=== PATIENT | male | born 1935 | race Caucasian/White ===

== ENCOUNTER 2016-07-26 16:18 | Inpatient (IN) | payer MEDICARE ==
[2016-07-26] MEDS ORDERED: IPRATROPIUM-ALBUTEROL 3 ML NEB INHALATION STA ×2 (16:47→18:47)
[2016-07-26] MEDS ORDERED: SODIUM CHLORIDE 0.9% 1,000 ML IV STA (16:47)
[2016-07-26] MEDS ORDERED: MAGNESIUM SULFATE-D5W PMX 1 GM in DEXTROSE/WATER 1 100ML.BAG IVPB STA (16:47)
[2016-07-26] MEDS ORDERED: methylPREDNISolone SOD SUCCI 125 MG/2 ML VIAL IV STA (16:47)
[2016-07-26 17:07] LABS: Basophils # (A) 0.1 k/uL (0-0.2); Basophils % (A) 1 %; CH 33.1; CHCM 34.6; Eosinophils # (A) 0.1 k/uL (0-0.7); Eosinophils % (A) 1 %; HCT 43.6 % (39.0-53.0); HDW 2.33; HGB 14.6 gm/dL (13.0-17.5); Luc # (Auto) 0.37; Luc % (Auto) 4; Lymphocytes # (A) 1.4 k/uL (1.0-4.8); Lymphocytes % (A) 15 %; MCHC 33.4 g/dL (31.0-37.0); Mean Platelet Volume 6.5; Monocytes # (A) 0.8 k/uL (0-1.0); Monocytes % (A) 8 %; Neutrophils % (A) 72 %; RBC 4.55 m/uL (4.30-5.90); RDW 13.5 % (11.5-15.5); WBC 9.7 k/uL (3.8-10.6)
[2016-07-26 17:14] LABS: ALT 22 U/L (21-72); AST 25 U/L (17-59); Alkaline Phosphatase 44 U/L (38-126); Anion Gap 10 mmol/L; Blood Urea Nitrogen 32 mg/dL (9-20); Calcium 9.1 mg/dL (8.4-10.2); Carbon Dioxide 24 mmol/L (22-30); Chloride 103 mmol/L (98-107); Glucose 92 mg/dL (74-99); Magnesium 2.1 mg/dL (1.6-2.3); Non-African American GFR(MDRD) >60 (>60 ml/min/1.73 sqM); Partial Thromboplastin Time 26.1 sec (22.0-30.0); Potassium 4.7 mmol/L (3.5-5.1); Prothrombin Time 10.4 sec (9.0-12.0); Sodium 137 mmol/L (137-145); Total Bilirubin 0.8 mg/dL (0.2-1.3); Total Protein 7.1 g/dL (6.3-8.2)
--- NOTE | 2016-07-26 17:14 | ED ---
SOB HPI - General Chief Complaint: Shortness of Breath Stated Complaint: Difficulty Breathing Time Seen by Provider: 07/26/16 16:32 Source: patient, family, RN notes reviewed Mode of arrival: wheelchair Limitations: no limitations - History of Present Illness Initial Comments: Physical 81-year-old male with a history of pulmonary fibrosis who was comes in complaining of shortness of breath with exertional dyspnea today is found have a low pulse oximetry on his 3 L of oxygen in the 80% range issues as well as to the 90s he states he also had some headache some phlegm no chest pain no other symptoms at this time. MD Complaint: shortness of breath, cough - Related Data Home Medications Medication Instructions Recorded Confirmed ALPRAZolam [Xanax] 0.25 mg PO DAILY PRN 07/26/16 07/26/16 Aspirin EC [Ecotrin Low Dose] 81 mg PO DAILY 07/26/16 07/26/16 Candesartan/Hydrochlorothiazid 1 tab PO DAILY 07/26/16 07/26/16 [Candesartan-Hctz 32-12.5 mg Tb] Famotidine [Pepcid] 20 mg PO DAILY 07/26/16 07/26/16 Gabapentin [Neurontin] 300 mg PO DAILY 07/26/16 07/26/16 Pirfenidone [Esbriet] 267 mg PO DAILY 07/26/16 07/26/16 Sertraline [Zoloft] 100 mg PO DAILY 07/26/16 07/26/16 Simvastatin [Zocor] 40 mg PO HS 07/26/16 07/26/16 predniSONE 10 mg PO DAILY 07/26/16 07/26/16 rOPINIRole HCL [Requip] 1 mg PO HS 07/26/16 07/26/16 Allergies Allergy/AdvReac Type Severity Reaction Status Date / Time No Known Allergies Allergy Verified 07/26/16 16:54 Review of Systems ROS Statement: Those systems with pertinent positive or pertinent negative responses have been documented in the HPI. ROS Other: All systems not noted in ROS Statement are negative. Past Medical History Past Medical History: Hyperlipidemia, Hypertension Additional Past Medical History / Comment(s): pulmonary fibrosis, RLS History of Any Multi-Drug Resistant Organisms: None Reported Past Psychological History: No Psychological Hx Reported Smoking Status: Never smoker Past Alcohol Use History: None Reported Past Drug Use History: None Reported General Exam - General Exam Comments Initial Comments: This is a well-developed well-nourished awake alert oriented x 3 male Limitations: no limitations General appearance: alert, anxious, in distress Head exam: Present: atraumatic, normocephalic, normal inspection Eye exam: Present: normal appearance, PERRL, EOMI. Absent: scleral icterus, conjunctival injection, periorbital swelling ENT exam: Present: normal exam, mucous membranes moist Neck exam: Present: normal inspection. Absent: tenderness, meningismus, lymphadenopathy Respiratory exam: Present: wheezes, accessory muscle use, decreased breath sounds Cardiovascular Exam: Present: tachycardia GI/Abdominal exam: Present: soft, normal bowel sounds. Absent: distended, tenderness, guarding, rebound, rigid Extremities exam: Present: normal inspection, full ROM, normal capillary refill. Absent: tenderness, pedal edema, joint swelling, calf tenderness Back exam: Present: normal inspection Neurological exam: Present: alert, oriented X3, CN II-XII intact Psychiatric exam: Present: normal affect, normal mood Skin exam: Present: warm, dry, intact, normal color. Absent: rash Course Vital Signs 07/26/16 07/26/16 07/26/16 16:33 16:57 17:03 Temperature 99.0 F Pulse Rate 109 H 111 H Respiratory 20 18 18 Rate Blood Pressure 131/61 O2 Sat by Pulse 88 L Oximetry 07/26/16 07/26/16 07/26/16 17:15 17:18 18:16 Temperature 98.1 F Pulse Rate 108 H 103 H 102 H Respiratory 20 18 Rate Blood Pressure 125/62 130/72 O2 Sat by Pulse 95 92 L Oximetry 07/26/16 07/26/16 19:02 19:07 Temperature Pulse Rate 104 H 128 H Respiratory Rate Blood Pressure O2 Sat by Pulse Oximetry - Reevaluation(s) Reevaluation #1: 07/26/16 19:17 The patient had minimal improvement from the treatment that was rendered Medical Decision Making - Medical Decision Making I did reevaluate patient several more occasions he can minimal improvement she still desaturated with minimal exertion he will be admitted I did discuss case with him and his family and with Dr. Cook. Dr. Guzmán will be consulted - Lab Data Result diagrams: 07/26/16 16:55 07/26/16 16:55 Lab Results 03/12/0507/26/16 07/26/16 Range/Units 16:55 16:55 16:55 WBC 9.7 (3.8-10.6) k/uL RBC 4.55 (4.30-5.90) m/uL Hgb 14.6 (13.0-17.5) gm/dL Hct 43.6 (39.0-53.0) % MCV 96.0 (80.0-100.0) fL MCH 32.0 (25.0-35.0) pg MCHC 33.4 (31.0-37.0) g/dL RDW 13.5 (11.5-15.5) % Plt Count 163 (150-450) k/uL Neutrophils % 72 % Lymphocytes % 15 % Monocytes % 8 % Eosinophils % 1 % Basophils % 1 % Neutrophils # 7.0 (1.3-7.7) k/uL Lymphocytes # 1.4 (1.0-4.8) k/uL Monocytes # 0.8 (0-1.0) k/uL Eosinophils # 0.1 (0-0.7) k/uL Basophils # 0.1 (0-0.2) k/uL PT (9.0-12.0) sec INR (<1.1) APTT (22.0-30.0) sec Sodium 137 (137-145) mmol/L Potassium 4.7 (3.5-5.1) mmol/L Chloride 103 (98-107) mmol/L Carbon Dioxide 24 (22-30) mmol/L Anion Gap 10 mmol/L BUN 32 H (9-20) mg/dL Creatinine 1.05 (0.66-1.25) mg/dL Est GFR (MDRD) Af Amer >60 (>60 ml/min/1.73 sqM) Est GFR (MDRD) Non-Af >60 (>60 ml/min/1.73 sqM) Glucose 92 (74-99) mg/dL Calcium 9.1 (8.4-10.2) mg/dL Magnesium 2.1 (1.6-2.3) mg/dL Total Bilirubin 0.8 (0.2-1.3) mg/dL AST 25 (17-59) U/L ALT 22 (21-72) U/L Alkaline Phosphatase 44 (38-126) U/L Total Creatine Kinase 61 (55-170) U/L CK-MB (CK-2) 0.3 (0.0-2.4) ng/mL CK-MB (CK-2) Rel Index 0.5 Troponin I <0.012 (0.000-0.034) ng/mL NT-Pro-B Natriuret Pep pg/mL Total Protein 7.1 (6.3-8.2) g/dL Albumin 4.3 (3.5-5.0) g/dL 07/26/16 07/26/16 Range/Units 16:55 16:55 WBC (3.8-10.6) k/uL RBC (4.30-5.90) m/uL Hgb (13.0-17.5) gm/dL Hct (39.0-53.0) % MCV (80.0-100.0) fL MCH (25.0-35.0) pg MCHC (31.0-37.0) g/dL RDW (11.5-15.5) % Plt Count (150-450) k/uL Neutrophils % % Lymphocytes % % Monocytes % % Eosinophils % % Basophils % % Neutrophils # (1.3-7.7) k/uL Lymphocytes # (1.0-4.8) k/uL Monocytes # (0-1.0) k/uL Eosinophils # (0-0.7) k/uL Basophils # (0-0.2) k/uL PT 10.4 (9.0-12.0) sec INR 1.0 (<1.1) APTT 26.1 (22.0-30.0) sec Sodium (137-145) mmol/L Potassium (3.5-5.1) mmol/L Chloride (98-107) mmol/L Carbon Dioxide (22-30) mmol/L Anion Gap mmol/L BUN (9-20) mg/dL Creatinine (0.66-1.25) mg/dL Est GFR (MDRD) Af Amer (>60 ml/min/1.73 sqM) Est GFR (MDRD) Non-Af (>60 ml/min/1.73 sqM) Glucose (74-99) mg/dL Calcium (8.4-10.2) mg/dL Magnesium (1.6-2.3) mg/dL Total Bilirubin (0.2-1.3) mg/dL AST (17-59) U/L ALT (21-72) U/L Alkaline Phosphatase (38-126) U/L Total Creatine Kinase (55-170) U/L CK-MB (CK-2) (0.0-2.4) ng/mL CK-MB (CK-2) Rel Index Troponin I (0.000-0.034) ng/mL NT-Pro-B Natriuret Pep 77 pg/mL Total Protein (6.3-8.2) g/dL Albumin (3.5-5.0) g/dL - EKG Data -: EKG Interpreted by Me EKG shows normal: sinus rhythm (Sinus tachycardia rate [address] interval 158 QRS duration 80 QT/QTC of 304/394 old inferior changes no acute ST-T wave changes) - Radiology Data Radiology results: report reviewed, image reviewed (I did review the imaging and report severe pulmonary fibrosis no definite acute changes otherwise.) Critical Care Time Critical Care Time: Yes Critical Care Time: 31 minutes of critical care time which includes initial history physical lab and x-rays evaluation of the same reevaluation patient to responsive therapy. Discussed with the patient family regarding findings discussed with the admitting physician admission orders and documentation the above. Disposition Clinical Impression: Acute exacerbation of chronic obstructive airways disease, Adult respiratory distress syndrome, Pulmonary fibrosis Disposition: ADMITTED IP TO THIS [facility] Condition: Stable
[2016-07-26 17:24] LABS: Creatine Kinase 61 U/L (55-170)
--- NOTE | 2016-07-26 17:36 | XR ---
EXAMINATION TYPE: XR chest 2V DATE OF EXAM: 07/26/2016 5:28 PM COMPARISON: 11/19/2012 HISTORY: Difficulty breathing TECHNIQUE: Frontal and lateral views of the chest are obtained. FINDINGS: There is coarsening of interstitial markings. Heart size is normal. There are chest leads. There is no mediastinal adenopathy. There is no definite pleural effusion. There is poor inspiration . Pulmonary vascularity is difficult to evaluate because of the lung disease. Bony thorax is intact. IMPRESSION: Extensive pulmonary interstitial fibrotic changes show some progression compared to old exam. No definite heart failure.
[2016-07-26 17:38] LABS: Creatine Kinase MB 0.3 ng/mL (0.0-2.4); Troponin I <0.012 ng/mL (0.000-0.034)
[2016-07-26] MEDS ORDERED: ACETAMINOPHEN IV (For NPO) 1,000 MG in EMPTY BAG 1 BAG IVPB ONE (18:22)
[2016-07-26] MEDS: ALPRAZolam 0.25 MG TAB PO PRN ×2 (19:26→22:27)
[2016-07-26] MEDS ORDERED: methylPREDNISolone SOD SUCC 60 MG in SODIUM CHLORIDE 0.9% 100 ML IVPB SCH (19:30)
[2016-07-26] MEDS ORDERED: LEVOFLOXACIN 500 MG TAB PO SCH (20:00)
[2016-07-26] MEDS ORDERED: IPRATROPIUM-ALBUTEROL 3 ML NEB INHALATION SCH ×2 (20:00)
[2016-07-26] MEDS ORDERED: ATORVASTATIN 20 MG TAB PO SCH (21:00)
[2016-07-26] MEDS: SODIUM CHLORIDE 0.9% 1,000 ML IV SCH (21:50)
[2016-07-26] MEDS ORDERED: GABAPENTIN 300 MG CAP PO SCH (21:58)
[2016-07-26 22:48] VITALS: BMI 29.1
--- NOTE | 2016-07-26 23:33 | HP ---
DATE OF ADMISSION: Mr. Blunt patient presented with shortness of breath and cough to the hospital. HISTORY OF PRESENT ILLNESS: Patient for the past week has had increasing cough with shortness of breath; states he has underlying pulmonary fibrosis, but his breathing has gotten so short that he could not even get through a shower without getting too short of breath. Cough has had some mild productivity but no hemoptysis. He has had no angina-type chest pain but does have some pain with his cough. Apparently he is maintained on 3 liters of oxygen at home and has been running into the 80% saturation range, which normally has been low for him. He does see Pulmonary Medicine, Dr. Guzmán, on a regular basis. Home medications include: 1. Xanax 0.25 as needed. 2. Aspirin 81 mg daily. 3. Combination candesartan/hydrochlorothiazide 32/12.5 mg daily. 4. Pepcid 20 mg daily. 5. Neurontin 300 mg daily. 6. Zoloft 100 mg daily. 7. Zocor 40 mg at bedtime. 8. Esbriet 267 mg daily. 9. Prednisone-dependent at 10 mg daily. 10. Requip 1 mg at bedtime for apparent restless leg syndrome. FAMILY HISTORY: Noncontributory. SOCIAL HISTORY: Negative for smoking. He lives locally with his in the area. Other past medical history is positive for: 1. Hyperlipidemia. 2. Hypertension. 3. Restless leg syndrome. 4. Pulmonary fibrosis. On physical examination, he is somewhat short of breath in the emergency room with use of accessory muscles. Vital signs reveal a temperature of 98.1. His pulse was as high as 128. Blood pressure 130/72 and he was 92% saturated on 4 liters. Once again, there is use of accessory muscles. Extraocular movements were intact. Neck is supple. No adenopathy, thyromegaly or bruits detected. Lungs revealed some harsher coarse breath sounds bilaterally. No rales definitely heard. Heart tones were somewhat distant but regular without murmurs or rubs. Abdomen was soft and nontender. Extremities revealed no edema. Rectal and scrotal exam deferred. NEUROLOGIC EXAM: He is alert and oriented. Cranial nerves were intact. He is moving all extremities without focal deficits noted. Lab testing revealed a white count of 9.7, hemoglobin 14.6 and a platelet count of 163. His INR is 1.0. Other chemistries were unremarkable except for his BUN of 32. His creatinine is 1.05, giving him a GFR greater than 60. Troponin was less than 0.012. All his liver function tests and other renal function tests were good. Albumin 4.3. EKG revealed a normal sinus rhythm; some changes consistent with a possible old inferior wall WI, but no definite acute ischemic changes noted. Chest x-ray revealed extensive pulmonary interstitial fibrotic changes, slightly worse from his older x-ray of 2012; no definite infiltrate or congestive signs seen. OVERALL IMPRESSION: Increasing shortness of breath with acute on chronic respiratory failure with oxygen saturations in the 80s with underlying acute infectious bronchitis and exacerbation of pulmonary fibrosis with underlying comorbidities of hypertension, hyperlipidemia, restless leg syndrome. PLANS: At this point, as discussed with the patient and family at bedside, will be to continue on corticosteroids, respiratory treatments. Will likely add antibiotics. Continue home maintenance medications. Will ask Pulmonary Medicine for consult. Further recommendations and treatment pending clinical response and results of above. MTDD
[2016-07-26] MEDS: methylPREDNISolone SOD SUCCI 125 MG/2 ML VIAL IV SCH (23:46)
[2016-07-27] MEDS ORDERED: methylPREDNISolone SOD SUCCI 125 MG/2 ML VIAL IV SCH
[2016-07-27] MEDS ORDERED: ALPRAZolam 0.25 MG TAB PO PRN (02:20)
[2016-07-27] MEDS: SODIUM CHLORIDE 0.9% 1,000 ML IV SCH (06:28)
[2016-07-27 06:46] LABS: Glucose,Whole Blood 124 mg/dL (75-99)
[2016-07-27] MEDS: INSULIN LISPRO (humaLOG) 300 UNIT/3 ML VIAL SQ SCH ×2 (07:36→11:42)
[2016-07-27 07:40] VITALS: BP 129/78; PULSE 81; RESP 24; TEMP 97.8
[2016-07-27] MEDS: methylPREDNISolone SOD SUCCI 125 MG/2 ML VIAL IV SCH (07:42)
[2016-07-27] MEDS ORDERED: ALPRAZolam 0.5 MG TAB PO PRN (07:43)
--- NOTE | 2016-07-27 07:50 | P.PN ---
Progress Note - Text The patient is a 81-year-old gentleman. Patient of Dr. Cantu's for whom I'm covering. Patient has underlying pulmonary fibrosis and has had increasing shortness of breath with cough and decreasing saturations prompting him to come to the emergency room yesterday. Patient does have other comorbidities with hyperlipidemia, hypertension and restless leg syndrome. Patient has been initiated on corticosteroids, antibiotics and respiratory treatments. States he had a rough night but states he does feel somewhat better with his respirations today. He is alert and oriented. Sitting at the side of the bed. Vital signs reveal a temperature 97.8 with a pulse of 81 and respirations 24. Blood pressure 129/ 78 and he is 92% saturated on 4 L. Lungs do show some scattered and inspiratory wheeze. Otherwise some harsh breath sounds. Heart tones are distant but regular. Abdomen is soft and nontender. No unusual edema. No focal neurological deficits. Impressions and plans: With the patient's present lung condition apparently he has been more anxious and had more trouble with his restless leg syndrome. Discussed with patient and staff at bedside. We'll try to adjust his medications to to accommodate this situation. Also await further recommendations from pulmonary medicine who have been consulted and patient sees on a regular outpatient basis. Continue his other pulmonary treatments for now.
--- NOTE | 2016-07-27 08:32 | CDI ---
In responding to this query, please exercise your independent professional judgment. The [facility] Coding Staff and Clinical Documentation Specialists appreciate your assistance in clarifying documentation, maintaining compliance with coding guidelines, accurately documenting patients condition and capturing severity of illness. The fact that a question is asked does not imply that any particular answer is desired or expected. Communication forms are a method of clarifying documentation and are not made part of the Legal Health Record. Thank you in advance for your clarification. Last Revision, July 2015 Jarad Lynn [address] [facility] [facility] [place] [address] Documentation Clarification Form Date: 07/27/2016 8:20:00 AM From: Daphne Jolly CCS, CCDS Admit Date: 07/26/2016 7:21:00 PM Patient Name: Hussein Blunt Visit Number: [id number] Discharge Date: Dr. Chuy Cook: The patient presented with the following respiratory symptoms: SOB, difficulty breathing, cough & phlegm. Patient has a known history of pulmonary fibrosis on home O2. Documentation and location in medical record included Acute on Chronic Respiratory Failure and exacerbation of Pulmonary Fibrosis with bronchitis. Home oxygen: 3Lnc Clinical Indicators: Vital signs/Pulse oximetry: T 99.0, P 109, R 20-18 (sob), BP 131/61, PO 88 3Lnc. Treatment: O2 3Lnc, Albuterol INH, IV MagSulfate, IV fl 100, IV Solumedrol, IV Tylenol, po Levaquin. Consult: Pulmonary In your professional opinion, can you please clarify if these findings signify one of the following conditions? Acuity: Acute Chronic Acute on Chronic Respiratory failure with hypercapnia Respiratory failure with hypoxia Acute Respiratory Distress Other Diagnosis, please specify Unable to determine Please document in your progress notes and discharge summary in order to capture severity of illness and risk of mortality. Include clinical findings that support your diagnosis. FYI: Press F11 to launch patient chart. Place X here if this finding has no clinical significance, is not applicable or if you are not able to provide any additional documentation. Thank You. VENUS
--- NOTE | 2016-07-27 08:52 | CDI ---
In responding to this query, please exercise your independent professional judgment. The [facility] Coding Staff and Clinical Documentation Specialists appreciate your assistance in clarifying documentation, maintaining compliance with coding guidelines, accurately documenting patients condition and capturing severity of illness. The fact that a question is asked does not imply that any particular answer is desired or expected. Communication forms are a method of clarifying documentation and are not made part of the Legal Health Record. Thank you in advance for your clarification. Last Revision, March 2015 Jaradyarelis Lynn [address] [facility] [place] [address] Documentation Clarification Form Date: 07/27/2016 8:42:00 AM From: Daphne Jolly Admit Date: 07/26/2016 7:21:00 PM Patient Name: Hussein Blunt Visit Number: [id number] Discharge Date: Dr. Chuy Cook Per the History & Physical impression: Increasing SOB with acute on chronic respiratory failure with O2 sats in the 80s with underlying bronchitis & exacerbation of pulmonary fibrosis with underlying comorbidities... Please clarify the acuity of bronchitis: o Acute o Acute on chronic o Other (please specify) o Unable to determine Please clarify the type of bronchitis o Allergic o Aspiration o Asthmatic o Chronic obstructive bronchitis o Obstructive bronchitis o Other (please specify) o Unable to determine o Unknown Please document in your progress notes and discharge summary in order to capture severity of illness and risk of mortality. Include clinical findings that support your diagnosis. FYI: Press F11 to launch patient chart. Place X here if this finding has no clinical significance, is not applicable or if you are not able to provide any additional documentation. Thank You. VENUS
[2016-07-27] MEDS ORDERED: HYDROCHLOROTHIAZIDE 12.5 MG CAP PO SCH (09:00)
[2016-07-27] MEDS ORDERED: ASPIRIN 81 MG CHEW PO SCH (09:00)
[2016-07-27] MEDS ORDERED: FAMOTIDINE 20 MG TAB PO SCH (09:00)
[2016-07-27] MEDS ORDERED: LOSARTAN 50 MG TAB PO SCH (09:00)
[2016-07-27] MEDS ORDERED: PIRFENIDONE 267 MG PO SCH (09:00)
[2016-07-27] MEDS ORDERED: GABAPENTIN 300 MG CAP PO SCH (09:00)
[2016-07-27] MEDS ORDERED: SERTRALINE 100 MG TAB PO SCH (09:00)
[2016-07-27 11:16] LABS: Hemoglobin A1C 5.4 % (4.2-6.1)
--- NOTE | 2016-07-27 11:37 | P.CNPUL ---
History of Present Illness Consult date: 07/27/16 Requesting physician: Chuy Cook Reason for consult: dyspnea Chief complaint: Shortness of breath, cough History of present illness: This is a very pleasant 81-year-old gentleman who follows with Dr. Cantu as his primary care physician. He has a history of hypertension, hyperlipidemia. He also follows with Dr. Guzmán in our office for pulmonary fibrosis and has been on pirfenidone and tolerating it quite well. He presented here yesterday with complaints of increasing shortness of breath and dry nonproductive cough. No fever, chills or night sweats. No hemoptysis. His chest x-ray revealed evidence of extensive pulmonary interstitial fibrotic changes but no acute pulmonary disease. No congestive heart failure. He is seen today in consultation. He is awake and alert in no acute distress. He is quite anxious and restless most likely secondary to the IV Solu-Medrol. There is no leukocytosis. No elevated BNP. Negative troponins. He has been afebrile. He states he is breathing easier today as compared to yesterday and is pretty much back to his baseline. He is anxious to go home. Review of Systems 14 point review of system was conducted. All negative other than as mentioned in the HPI. Past Medical History Past Medical History: Hyperlipidemia, Hypertension Additional Past Medical History / Comment(s): pulmonary fibrosis, RLS History of Any Multi-Drug Resistant Organisms: None Reported Past Psychological History: No Psychological Hx Reported Smoking Status: Never smoker Past Alcohol Use History: None Reported Past Drug Use History: None Reported - Past Family History Father Family Medical History: Myocardial Infarction ([place]) Medications and Allergies Home Medications Medication Instructions Recorded Confirmed Type ALPRAZolam [Xanax] 0.25 mg PO DAILY PRN 07/26/16 07/26/16 History Aspirin EC [Ecotrin Low Dose] 81 mg PO DAILY 07/26/16 07/26/16 History Candesartan/Hydrochlorothiazid 1 tab PO DAILY 07/26/16 07/26/16 History [Candesartan-Hctz 32-12.5 mg Tb] Famotidine [Pepcid] 20 mg PO DAILY 07/26/16 07/26/16 History Gabapentin [Neurontin] 300 mg PO DAILY 07/26/16 07/26/16 History Pirfenidone [Esbriet] 267 mg PO DAILY 07/26/16 07/26/16 History Sertraline [Zoloft] 100 mg PO DAILY 07/26/16 07/26/16 History Simvastatin [Zocor] 40 mg PO HS 07/26/16 07/26/16 History predniSONE 10 mg PO DAILY 07/26/16 07/26/16 History rOPINIRole HCL [Requip] 1 mg PO HS 07/26/16 07/26/16 History Allergies Allergy/AdvReac Type Severity Reaction Status Date / Time No Known Allergies Allergy Verified 07/26/16 16:54 Physical Exam Vitals: Vital Signs Temp Pulse Pulse Resp BP BP Pulse Ox 07/27/16 07:00 97.8 F 81 24 129/78 92 L 07/26/16 23:00 97.9 F 93 20 114/66 95 07/26/16 21:45 20 07/26/16 21:11 97.9 F 93 20 114/66 95 07/26/16 19:26 107 H 16 109/67 92 L Intake and Output 07/26/16 07/27/16 07/27/16 22:59 06:59 14:59 Intake Total 400 Output Total 850 Balance -450 Intake: Oral 400 Output: Urine 850 Other: Voiding Method Toilet Weight 84.368 kg GENERAL EXAM: Alert, active, comfortable in no apparent distress. HEAD: Normocephalic. EYES: Normal reaction of pupils, equal size. NOSE: Clear with pink turbinates. THROAT: No erythema or exudates. NECK: No masses, no JVD. CHEST: No chest wall deformity. LUNGS: Equal air entry with coarse Velcro crackles in the bilateral bases. Diminished. CVS: S1 and S2 normal with no audible murmurs, regular rhythm. ABDOMEN: No hepatosplenomegaly, normal bowel sounds, no guarding or rigidity. SPINE: No scoliosis or deformity SKIN: No rashes CENTRAL NERVOUS SYSTEM: No focal deficits, tone is normal in all 4 extremities. Extremities: There is no significant peripheral edema. No clubbing, no cyanosis. Peripheral pulses are intact. Results - Laboratory Findings CBC and BMP: 07/26/16 16:55 07/26/16 16:55 PT/INR, D-dimer PT 10.4 sec (9.0-12.0) 07/26/16 16:55 INR 1.0 (<1.1) 07/26/16 16:55 Abnormal lab findings: Abnormal Labs 07/27/16 06:44 POC Glucose (mg/dL) 124 H - Diagnostic Findings Chest x-ray: image reviewed (Pulmonary fibrosis) Assessment and Plan Plan: Impression: #1 Acute exacerbation of severe chronic pulmonary fibrosis without clear evidence of acute pulmonary process. #2 Acute on chronic hypoxic respiratory failure secondary to above. #3 Hypertension. #4 Hyperlipidemia. #5 Restless leg syndrome. #6 Anxiety/depression. #7 Gastroesophageal reflux disease. Plan: The patient was seen and evaluated by Dr. Anthony. His chest x-ray and labs were reviewed. The patient is back to his baseline in regards to his chronic pulmonary fibrosis. He is asking to go home. He is cleared for discharge from our standpoint. We'll continue prednisone 30 mg for 5 days then 20 mg for 5 days and continue his maintenance 10 mg daily. We'll also give an enema empiric dose of antibiotics in the form of Bactrim DS 1 tablet twice a day 7 days[address] He'll see Dr[address] Guzmán in our office early next week in follow-up. He is however encouraged to call sooner with any recurrence of symptoms or other questions or concerns. Time with Patient: Greater than 30
[2016-07-27 11:42] LABS: Glucose,Whole Blood 131 mg/dL (75-99)
--- NOTE | 2016-07-27 20:10 | DS ---
DATE OF ADMISSION: 07/26/2016 DATE OF DISCHARGE: 07/27/2016 This gentleman is an 81-year-old gentleman who presented to the emergency room with increasing shortness of breath, cough. I was called after being evaluated by the emergency room physician. The patient has a history of severe pulmonary fibrosis and is followed up by Dr. Guzmán as an outpatient. He was having desaturations down into the 80% range. He was found to have extensive pulmonary interstitial fibrotic changes on his x-rays. Laboratory values are relatively stable with a white count of 9.7, hemoglobin 14.6, platelet count of 163, INR 1.0, BUN of 32, creatinine 1.05. His GFR was greater than 60. His troponin was less than 0.012. Liver tests were good. Renal function was satisfactory. Albumin was 4.3. EKG showed normal sinus rhythm, no definite acute ischemic changes. Other comorbidities were hyperlipidemia and hypertension. The patient was placed on corticosteroids and antibiotics, respiratory treatments. Within 24 hours, patient felt better. He was seen in consultation by pulmonary medicine, Dr. Anthony. Patient was subsequently discharged to home. DISCHARGE MEDICATIONS: 1. He was placed on tapering dosages of prednisone. 2. Along with Bactrim double strength one twice a day for 7 days. 3. He was to resume his home medications which included Xanax 0.25 daily as needed. 4. Ecotrin 81 mg. 5. He is also on combination candesartan- hydrochlorothiazide 32/12.5, 1 daily. 6. Pepcid 20 mg daily. 7. Neurontin 300 mg daily. 8. He is on Prifenidone 267 mg daily. 9. Zoloft 100 mg daily. 10. Zocor 40 mg. 11. He is to taper down his prednisone down to his maintenance 10 mg. 12. He is also on Requip 1 mg at bedtime. FINAL DISCHARGE DIAGNOSIS(ES): 1. Acute exacerbation of underlying pulmonary process with acute on chronic respiratory failure and deoxygenation. 2. Along with acute on chronic hypoxia. 3. Hypertension. 4. Hyperlipidemia. 5. Restless leg syndrome. 6. Anxiety/depression. 7. Gastroesophageal reflux. Patient to follow up with Dr. Guzmán in the office and Dr. Cantu when he returns. The patient's symptoms worsened. He is to either call the office or return to the emergency room. [facility]
== END 2016-07-27 11:57 | disposition home or self-care (01) | DRG 189 ==
LOC: EC 16:18 → 4MS4W 19:21
PROVIDERS: ADMIT Internal Medicine; ATTEND Internal Medicine
DX: J96.21 Acute and chronic respiratory failure with hypoxia (principal); J44.1 Chronic obstructive pulmonary disease with (acute) exacerbation; J84.10 Pulmonary fibrosis, unspecified; I10 Essential (primary) hypertension; F32.9 Major depressive disorder, single episode, unspecified; E78.5 Hyperlipidemia, unspecified; F41.9 Anxiety disorder, unspecified; G25.81 Restless legs syndrome; K21.9 Gastro-esophageal reflux disease without esophagitis; Z79.52 Long term (current) use of systemic steroids; Z79.82 Long term (current) use of aspirin; Z79.899 Other long term (current) drug therapy; Z99.81 Dependence on supplemental oxygen; Z82.49 Family history of ischemic heart disease and other diseases of the circulatory system
CPT/HCPCS: 36415; 71020; 80053; 82550; 82553; 83036; 83735; 83880; 84484; 85025; 85610; 85730; 93005; 94640; 96365; 96375; 99291

== ENCOUNTER 2016-08-03 15:08 | Inpatient (IN) | payer MEDICARE ==
[2016-08-03] MEDS ORDERED: methylPREDNISolone SOD SUCCI 125 MG/2 ML VIAL IV STA (15:52)
[2016-08-03] MEDS ORDERED: IPRATROPIUM 0.5 MG/2.5 ML NEBU INHALATION STA (15:52)
[2016-08-03] MEDS ORDERED: ALBUTEROL NEBULIZED 2.5 MG/3 ML INHALATION STA (15:52)
[2016-08-03] MEDS ORDERED: LORazepam 2 MG/ML SYRINGE IV STA ×2 (15:53→18:34)
--- NOTE | 2016-08-03 16:10 | ED ---
General Adult HPI - General Chief complaint: Upper Respiratory Infection Stated complaint: Pulmonary Fibrosis Time Seen by Provider: 08/03/16 15:15 Source: patient, family, RN notes reviewed Mode of arrival: wheelchair Limitations: no limitations - History of Present Illness Initial comments: This is an 81-year-old male who presents to the emergency department with a past medical history significant for pulmonary fibrosis. Patient states she was released from the hospital one week ago. Patient comes in today complaining of congestion in his head even though he can still breathe through his nose and shortness of breath with more coughing. Patient states he is fine as long she is not coughing but when he sits coughing he becomes severely short of breath. Patient denies any fever or chills. Patient denies any chest pain. Patient denies any palpitations. Patient denies any headache. Patient denies abdominal pain patient denies nausea vomiting diarrhea. - Related Data Home Medications Medication Instructions Recorded Confirmed ALPRAZolam [Xanax] 0.25 mg PO DAILY PRN 07/26/16 08/03/16 Aspirin EC [Ecotrin Low Dose] 81 mg PO DAILY 07/26/16 08/03/16 Candesartan/Hydrochlorothiazid 1 tab PO DAILY 07/26/16 08/03/16 [Candesartan-Hctz 32-12.5 mg Tb] Famotidine [Pepcid] 20 mg PO DAILY 07/26/16 08/03/16 Gabapentin [Neurontin] 300 mg PO DAILY 07/26/16 08/03/16 Pirfenidone [Esbriet] 267 mg PO DAILY 07/26/16 08/03/16 Sertraline [Zoloft] 100 mg PO DAILY 07/26/16 08/03/16 Simvastatin [Zocor] 40 mg PO HS 07/26/16 08/03/16 rOPINIRole HCL [Requip] 1 mg PO HS 07/26/16 08/03/16 Previous Rx's Medication Instructions Recorded Sulfamethox-Tmp 800-160Mg [Bactrim 1 tab PO Q12HR #14 tab 07/27/16 DS 800-160 mg] predniSONE 10 mg PO DAILY #25 tab 07/27/16 Allergies Allergy/AdvReac Type Severity Reaction Status Date / Time Poultry [[place]] Allergy Unknown Verified 08/03/16 16:22 apples Allergy Unknown Uncoded 08/03/16 15:17 Review of Systems ROS Statement: Those systems with pertinent positive or pertinent negative responses have been documented in the HPI. ROS Other: All systems not noted in ROS Statement are negative. Past Medical History Past Medical History: Hyperlipidemia, Hypertension Additional Past Medical History / Comment(s): pulmonary fibrosis, RLS History of Any Multi-Drug Resistant Organisms: None Reported Past Surgical History: No Surgical Hx Reported Past Psychological History: No Psychological Hx Reported Smoking Status: Never smoker Past Alcohol Use History: None Reported Past Drug Use History: None Reported - Past Family History Father Family Medical History: Myocardial Infarction ([place]) General Exam - General Exam Comments Initial Comments: GENERAL: Patient is well-developed and well-nourished. Patient is nontoxic and well- hydrated and is in moderate distress. ENT: Neck is soft and supple. No significant lymphadenopathy is noted. Oropharynx is clear. Moist mucous membranes. Neck has full range of motion without eliciting any pain. EYES: The sclera were anicteric and conjunctiva were pink and moist. Extraocular movements were intact and pupils were equal round and reactive to light. Eyelids were unremarkable. PULMONARY: Patient has crackles bilateral bases. CARDIOVASCULAR: There is a regular rate and rhythm without any murmurs gallops or rubs. ABDOMEN: Soft and nontender with normal bowel sounds. No palpable organomegaly was noted. There is no palpable pulsatile mass. SKIN: Skin is clear with no lesions or rashes and otherwise unremarkable. NEUROLOGIC: Patient is alert and oriented x3. Cranial nerves II through XII are grossly intact. Motor and sensory are also intact. Normal speech, volume and content. Symmetrical smile. MUSCULOSKELETAL: Normal extremities with adequate strength and full range of motion. No lower extremity swelling or edema. No calf tenderness. LYMPHATICS: No significant lymphadenopathy is noted PSYCHIATRIC: Normal psychiatric evaluation. Normal interpersonal interactions appears functionally intact in deals appropriately with others. No signs of depression. No signs of anxiety. Limitations: no limitations Course Vital Signs 08/03/16 08/03/16 08/03/16 15:12 15:35 15:37 Temperature 97.4 F L 97.5 F L Pulse Rate 103 H 100 93 Respiratory 18 22 Rate Blood Pressure 109/59 O2 Sat by Pulse 87 L 95 Oximetry 08/03/16 08/03/16 08/03/16 16:08 16:21 17:00 Temperature Pulse Rate 91 96 99 Respiratory 18 18 Rate Blood Pressure 122/70 109/64 O2 Sat by Pulse 93 L 92 L Oximetry 08/03/16 18:19 Temperature 97.8 F Pulse Rate 110 H Respiratory 20 Rate Blood Pressure 117/84 O2 Sat by Pulse 93 L Oximetry Medical Decision Making - Medical Decision Making EKG shows normal sinus rhythm at 95 bpm WV interval is 160 QRS is 80 QT interval 334 QTC is 419. Patient's EKG shows no ST segment elevation or depression or T wave abnormalities are noted. Chest x-ray showed no acute abnormality. Spoke with Dr. Cantu he agreed to admit the patient. I admitted the patient continued steroids I started Levaquin empirically because Dr. Cantu wanted it. I consult the Dr. Guzmán - Lab Data Result diagrams: 08/03/16 15:15 08/03/16 15:15 Lab Results 08/03/16 08/03/16 08/03/16 Range/Units 15:15 15:15 15:15 WBC 15.1 H (3.8-10.6) k/uL RBC 4.60 (4.30-5.90) m/uL Hgb 15.0 (13.0-17.5) gm/dL Hct 43.7 (39.0-53.0) % MCV 94.9 (80.0-100.0) fL MCH 32.7 (25.0-35.0) pg MCHC 34.4 (31.0-37.0) g/dL RDW 13.2 (11.5-15.5) % Plt Count 195 (150-450) k/uL Neutrophils % 76 % Lymphocytes % 15 % Monocytes % 4 % Eosinophils % 1 % Basophils % 1 % Neutrophils # 11.5 H (1.3-7.7) k/uL Lymphocytes # 2.3 (1.0-4.8) k/uL Monocytes # 0.6 (0-1.0) k/uL Eosinophils # 0.1 (0-0.7) k/uL Basophils # 0.1 (0-0.2) k/uL PT (9.0-12.0) sec INR (<1.1) APTT (22.0-30.0) sec Sodium 136 L (137-145) mmol/L Potassium 4.6 (3.5-5.1) mmol/L Chloride 100 (98-107) mmol/L Carbon Dioxide 23 (22-30) mmol/L Anion Gap 13 mmol/L BUN 37 H (9-20) mg/dL Creatinine 1.38 H (0.66-1.25) mg/dL Est GFR (MDRD) Af Amer >60 (>60 ml/min/1.73 sqM) Est GFR (MDRD) Non-Af 50 (>60 ml/min/1.73 sqM) Glucose 102 H (74-99) mg/dL Calcium 9.1 (8.4-10.2) mg/dL Total Bilirubin 0.5 (0.2-1.3) mg/dL AST 25 (17-59) U/L ALT 36 (21-72) U/L Alkaline Phosphatase 45 (38-126) U/L Total Creatine Kinase 93 (55-170) U/L CK-MB (CK-2) 0.8 (0.0-2.4) ng/mL CK-MB (CK-2) Rel Index 0.9 Troponin I <0.012 (0.000-0.034) ng/mL NT-Pro-B Natriuret Pep pg/mL Total Protein 7.0 (6.3-8.2) g/dL Albumin 4.2 (3.5-5.0) g/dL Influenza Type A RNA (Not Detectd) Influenza Type B (PCR) (Not Detectd) 08/03/16 08/03/16 08/03/16 Range/Units 15:15 15:15 15:15 WBC (3.8-10.6) k/uL RBC (4.30-5.90) m/uL Hgb (13.0-17.5) gm/dL Hct (39.0-53.0) % MCV (80.0-100.0) fL MCH (25.0-35.0) pg MCHC (31.0-37.0) g/dL RDW (11.5-15.5) % Plt Count (150-450) k/uL Neutrophils % % Lymphocytes % % Monocytes % % Eosinophils % % Basophils % % Neutrophils # (1.3-7.7) k/uL Lymphocytes # (1.0-4.8) k/uL Monocytes # (0-1.0) k/uL Eosinophils # (0-0.7) k/uL Basophils # (0-0.2) k/uL PT 10.1 (9.0-12.0) sec INR 1.0 (<1.1) APTT 26.5 (22.0-30.0) sec Sodium (137-145) mmol/L Potassium (3.5-5.1) mmol/L Chloride (98-107) mmol/L Carbon Dioxide (22-30) mmol/L Anion Gap mmol/L BUN (9-20) mg/dL Creatinine (0.66-1.25) mg/dL Est GFR (MDRD) Af Amer (>60 ml/min/1.73 sqM) Est GFR (MDRD) Non-Af (>60 ml/min/1.73 sqM) Glucose (74-99) mg/dL Calcium (8.4-10.2) mg/dL Total Bilirubin (0.2-1.3) mg/dL AST (17-59) U/L ALT (21-72) U/L Alkaline Phosphatase (38-126) U/L Total Creatine Kinase (55-170) U/L CK-MB (CK-2) (0.0-2.4) ng/mL CK-MB (CK-2) Rel Index Troponin I (0.000-0.034) ng/mL NT-Pro-B Natriuret Pep 41 pg/mL Total Protein (6.3-8.2) g/dL Albumin (3.5-5.0) g/dL Influenza Type A RNA Not Detected (Not Detectd) Influenza Type B (PCR) Not Detected (Not Detectd) Disposition Clinical Impression: Pulmonary fibrosis Disposition: ADMITTED IP TO THIS [facility] Time of Disposition: 18:31
[2016-08-03 16:12] LABS: Basophils # (A) 0.1 k/uL (0-0.2); Basophils % (A) 1 %; CH 33.5; CHCM 35.5; Eosinophils # (A) 0.1 k/uL (0-0.7); Eosinophils % (A) 1 %; HCT 43.7 % (39.0-53.0); HDW 2.58; Luc # (Auto) 0.46; Luc % (Auto) 3; Lymphocytes # (A) 2.3 k/uL (1.0-4.8); Lymphocytes % (A) 15 %; MCH 32.7 pg (25.0-35.0); MCHC 34.4 g/dL (31.0-37.0); MCV 94.9 fL (80.0-100.0); Mean Platelet Volume 7.4; Monocytes # (A) 0.6 k/uL (0-1.0); Monocytes % (A) 4 %; Neutrophils # (A) 11.5 k/uL (1.3-7.7); Neutrophils % (A) 76 %; RDW 13.2 % (11.5-15.5); WBC 15.1 k/uL (3.8-10.6); WBC (Perox) 14.85
[2016-08-03 16:22] LABS: ALT 36 U/L (21-72); AST 25 U/L (17-59); Alkaline Phosphatase 45 U/L (38-126); Anion Gap 13 mmol/L; Blood Urea Nitrogen 37 mg/dL (9-20); Calcium 9.1 mg/dL (8.4-10.2); Carbon Dioxide 23 mmol/L (22-30); Chloride 100 mmol/L (98-107); Glucose 102 mg/dL (74-99); Non-African American GFR(MDRD) 50 (>60 ml/min/1.73 sqM); Potassium 4.6 mmol/L (3.5-5.1); Sodium 136 mmol/L (137-145); Total Bilirubin 0.5 mg/dL (0.2-1.3)
[2016-08-03 16:31] LABS: Partial Thromboplastin Time 26.5 sec (22.0-30.0); Prothrombin Time 10.1 sec (9.0-12.0)
[2016-08-03 16:37] LABS: Creatine Kinase 93 U/L (55-170)
--- NOTE | 2016-08-03 16:49 | XR ---
EXAMINATION TYPE: XR chest 2V DATE OF EXAM: 08/03/2016 4:43 PM COMPARISON: Prior chest x-ray July 26, 2016. Prior chest CT April 06, 2016. HISTORY: Shortness of breath, history of pulmonary fibrosis TECHNIQUE: Frontal and lateral views of the chest are obtained. FINDINGS: There is persistent bilateral lower lung reticulonodular changes consistent with known fib rosis. No new suspicious focal airspace opacity, pleural effusion, or pneumothorax is clearly seen. S omewhat low lung volumes are redemonstrated. The cardiac silhouette size is stable and mildly enlarge d. The osseous structures are intact. IMPRESSION: Persistent significant bilateral lower lung fibrosis suggesting IPF and cardiomegaly, no new acute pulmonary process clearly seen.
[2016-08-03 16:50] LABS: Creatine Kinase MB 0.8 ng/mL (0.0-2.4); Troponin I <0.012 ng/mL (0.000-0.034)
[2016-08-03] MEDS ORDERED: LEVOFLOXACIN 750MG-D5W PMX 750 MG in DEXTROSE/WATER 1 150ML.BAG IVPB STA (18:15)
[2016-08-03] MEDS ORDERED: IPRATROPIUM-ALBUTEROL 3 ML NEB INHALATION PRN (18:32)
[2016-08-03] MEDS ORDERED: ALPRAZolam 0.25 MG TAB PO PRN ×2 (18:33→21:17)
[2016-08-03] MEDS ORDERED: FAMOTIDINE 20 MG TAB PO STA (21:53)
[2016-08-03] MEDS ORDERED: PIRFENIDONE 801 MG PO SCH (22:00)
[2016-08-03] MEDS: ASPIRIN 81 MG CHEW PO SCH (22:29)
[2016-08-03] MEDS: ATORVASTATIN 20 MG TAB PO SCH (22:30)
[2016-08-03] MEDS: GABAPENTIN 300 MG CAP PO SCH (22:30)
[2016-08-03] MEDS: HYDROCHLOROTHIAZIDE 12.5 MG CAP PO SCH (22:33)
[2016-08-03] MEDS: SERTRALINE 100 MG TAB PO SCH (22:33)
[2016-08-03] MEDS: LOSARTAN 50 MG TAB PO SCH (22:33)
[2016-08-04] MEDS: methylPREDNISolone SOD SUCCI 125 MG/2 ML VIAL IV SCH ×5 (00:50→23:21)
[2016-08-04] MEDS: FAMOTIDINE 20 MG TAB PO SCH (08:10)
[2016-08-04] MEDS: HEPARIN SODIUM,PORCINE 5,000 UNIT/ML 1 ML VIAL SQ SCH ×3 (08:13→23:21)
[2016-08-04] MEDS: LORazepam 1 MG TAB PO SCH ×3 (08:13→21:54)
[2016-08-04] MEDS ORDERED: GABAPENTIN 300 MG CAP PO SCH (09:00)
--- NOTE | 2016-08-04 15:28 | P.CNPUL ---
History of Present Illness Consult date: 08/04/16 Reason for consult: pulmonary fibrosis History of present illness: 81-year-old male patient diagnosed having idiopathic pulmonary fibrosis that was confirmed by a wedge biopsy of the lung that was done several years back and the patient has UIP histology. The patient sees me on a regular basis in the office regarding his pulmonary fibrosis. The patient was initially diagnosed in 2012 and subsequently was treated with Esbriet 3 tablets 3 times a day which is a therapeutic dose for idiopathic pulmonary fibrosis. 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 His diffusion capacity was down to 37% of predicted. He had a CAT scan of the chest in August 2015 that showed stable pulmonary fibrosis and limited small mediastinal lymphadenopathy measuring 2.5 cm in size in its largest dimension in the right paratracheal area and addition to that there was a 4.2 cm aortic aneurysm unchanged. The patient had subsequent follow-ups with me in the office and based on his recent evaluation from April 2016 the patient had a stable CAT scan of the chest as well as repeated and upon comparison to the previous CAT scan there was no major abnormalities noted. Note that the latest CAT scan was done in March 2016. The patient was having some chronic dry cough and for that reason he was placed on a combination of Fosamax and low-dose prednisone 10 mg by mouth daily. His baseline x-ray requirements have been 3 L/m by nasal cannula to keep a saturation above 90%. On 08/04/2016, the patient is being seen in the hospital for increased shortness of breath. He was Hospital as yesterday because of increased dyspnea. He had some slight worsening his oxygenation and currently is on 4 L of oxygen by nasal cannula. He developed some nasal and upper airway congestion. He has a dry cough. No significant sputum production. No chest pain. No change in mental status. No pleurisy. No swelling lower extremities. His chest x-ray showing chronic bilateral pulmonary fibrotic changes. The patient was admitted to the hospital and he was placed on systemic steroids in addition to DuoNeb nebulized Jesus [id number]. He was also given empiric antibiotic coverage with Levaquin 750 mg by mouth every 48 hours. No history of any DVT or pulmonary embolism. No other complaints otherwise for now. Review of Systems the patient reported progressive worsening shortness of breath. Despite that, he had a stable CAT scan that was done in March 2016. Clinically however the patient is been having dry cough and progressive limitation capacity in terms of activity. Past Medical History Past Medical History: Hyperlipidemia, Hypertension Additional Past Medical History / Comment(s): idiopathic pulmonary fibrosis, chronic hypoxic respiratory failure, chronic cough, restless leg syndrome, depression, GE reflux. History of Any Multi-Drug Resistant Organisms: None Reported Past Surgical History: Appendectomy, Tonsillectomy Additional Past Surgical History / Comment(s): right knee surgery Past Anesthesia/Blood Transfusion Reactions: No Reported Reaction Past Psychological History: Anxiety, Depression Smoking Status: Never smoker Past Alcohol Use History: None Reported Past Drug Use History: None Reported - Past Family History Father Family Medical History: Myocardial Infarction ([place]) Medications and Allergies Home Medications Medication Instructions Recorded Confirmed Type ALPRAZolam [Xanax] 0.25 mg PO TID PRN 07/26/16 08/03/16 History Aspirin EC [Ecotrin Low Dose] 81 mg PO DAILY 07/26/16 08/03/16 History Candesartan/Hydrochlorothiazid 1 tab PO DAILY 07/26/16 08/03/16 History [Candesartan-Hctz 32-12.5 mg Tb] Famotidine [Pepcid] 20 mg PO DAILY 07/26/16 08/03/16 History Gabapentin [Neurontin] 300 mg PO HS 07/26/16 08/03/16 History Pirfenidone [Esbriet] 801 mg PO TID 07/26/16 08/03/16 History Sertraline [Zoloft] 100 mg PO HS 07/26/16 08/03/16 History Simvastatin [Zocor] 40 mg PO HS 07/26/16 08/03/16 History rOPINIRole HCL [Requip] 1.5 mg PO HS 07/26/16 08/03/16 History Allergies Allergy/AdvReac Type Severity Reaction Status Date / Time Poultry [[place]] Allergy Unknown Verified 08/03/16 16:22 apples Allergy Unknown Uncoded 08/03/16 15:17 Physical Exam Vitals: Vital Signs Temp Pulse Resp BP Pulse Ox 08/04/16 07:00 96.9 F L 75 22 107/66 94 L 08/03/16 23:00 97.2 F L 86 18 114/56 94 L 08/03/16 20:08 96.5 F L 111 H 20 104/52 92 L Intake and Output 08/04/16 08/04/16 08/04/16 06:59 14:59 22:59 Intake Total 400 Output Total 600 Balance -600 400 Intake: Oral 400 Output: Urine 600 Other: Voiding Method Toilet Head exam was generally normal. There was no scleral icterus or corneal arcus. Mucous membranes were moist.Neck was supple and without jugular venous distension, thyromegaly, or carotid bruits. Carotids were easily palpable bilaterally. There was no adenopathy. Lung sounds are diminished and there are some coarse crackles at lung bases bilaterally.Cardiac exam revealed the PMI to be normally situated and sized. The rhythm was regular and no extrasystoles were noted during several minutes of auscultation. The first and second heart sounds were normal and physiologic splitting of the second heart sound was noted. There were no murmurs, rubs, clicks, or gallops. Abdominal exam revealed normal bowel sounds. The abdomen was soft, non-tender, and without masses, organomegaly, or appreciable enlargement of the abdominal aorta.Examination of the extremities revealed easily palpable radial, femoral and pedal pulses. There was no cyanosis, clubbing or edema. Results - Laboratory Findings CBC and BMP: 08/03/16 15:15 08/03/16 15:15 PT/INR, D-dimer PT 10.1 sec (9.0-12.0) 08/03/16 15:15 INR 1.0 (<1.1) 08/03/16 15:15 - Diagnostic Findings Chest x-ray: image reviewed Assessment and Plan Plan: Assessment 1. Idiopathic pulmonary fibrosis. The patient's symptoms of worsening shortness of breath is most likely due to progression of his palmar fibrosis. Superimposed event such as pneumonia, heart failure, pulmonary embolism, or any other pulmonary complications are felt to be less likely. Nevertheless, based on his ongoing worsening shortness of breath, it's reasonable to obtain a computed tomography scan of the chest with contrast to make sure there is no other alternative decompensating factor for his IPF. 2 chronic hypoxic respiratory failure with, with slight interval worsening in his suctioning requirements is currently up to 4 L/m nasal cannula 3 chronic cough Four-vessel 6 syndrome 5 depression 6 hyperlipidemia 7 GE reflux Plan Agree on the current treatment. See with a CAT scan of the chest and this will be a CT angios with PE protocol to make sure there is no pulmonary embolism in January look for any interval worsening his pulmonary fibrosis or any other decompensating factor such as pneumonia/fluid/failure. My overall suspicion is that the patient is progressing and is progressively worsening his IPF. For that reason we'll need to continue Esbriet therapy to reduce the rate of progression. We'll continue to follow. Computed tomography scan of the chest will be delayed for another 24 hours. The patient's creatinine is up to 1.38 today. I would rather do this CAT scan with contrast. Based on that I will hold on for another 24 hours and repeat the creatinine and ordered a CAT scan of the chest if the creatinine normalizes. Otherwise he'll do a noncontrast study.
[2016-08-04] MEDS: ESBRIET 267 MG PO SCH ×2 (15:48→21:54)
[2016-08-04] MEDS ORDERED: LEVOFLOXACIN 750 MG TAB PO SCH (18:00)
[2016-08-04] MEDS ORDERED: LEVOFLOXACIN 750MG-D5W PMX 750 MG in DEXTROSE/WATER 1 150ML.BAG IVPB SCH (18:00)
[2016-08-04] MEDS: ASPIRIN 81 MG CHEW PO SCH (20:45)
[2016-08-04] MEDS: ATORVASTATIN 20 MG TAB PO SCH (20:46)
[2016-08-04] MEDS: GABAPENTIN 300 MG CAP PO SCH (20:47)
[2016-08-04] MEDS: LOSARTAN 50 MG TAB PO SCH (20:47)
[2016-08-04] MEDS: HYDROCHLOROTHIAZIDE 12.5 MG CAP PO SCH (20:47)
[2016-08-04] MEDS: SERTRALINE 100 MG TAB PO SCH (21:54)
--- NOTE | 2016-08-04 23:13 | HP ---
CHIEF COMPLAINT: Shortness of breath. HISTORY OF PRESENT ILLNESS: This is an 81-year-old gentleman who presents to the emergency room because of shortness of breath. The patient apparently has had a recent upper respiratory infection and cold. His also has the same symptoms. Patient denied any fever at present. He had temperature about a week ago, had some cough and had shortness of breath which made him panic. The patient was also noted to be hypoxic in the emergency room. The patient has underlying history of significant pulmonary fibrosis. He does follow with a electrical appliance repairer. The fibrosis disease is idiopathic. Patient's diffusion capacity has been down to 37% of predicted. Previous CAT scans have shown pulmonary fibrosis. Patient recently while in the hospital a week ago had been discharged on Bactrim and Medrol Dosepak. REVIEW OF SYSTEMS: NEURO: Denies any headaches, dizziness. PSYCH: Anxiety. CARDIAC: No chest pain, angina, palpitation. RESPIRATORY: Present complaint of shortness of breath, cough. No hemoptysis. GI: No nausea, vomiting, abdominal pain, diarrhea, constipation, hematochezia, melena. : No symptoms of dysuria, hematuria, urgency, frequency. EXTREMITIES: No pain, edema. CONSTITUTIONAL: No fever, chills. SKIN: No rashes. MUSCULOSKELETAL: Some aches and pains Does have restless legs. Past medical history is significant for pulmonary fibrosis, some gastroesophageal reflux and hypertension and restless leg syndrome. He also has history of hyperlipidemia. Past surgical history is significant tonsillectomy, appendectomy. PERSONAL HISTORY: Never a smoker. No alcohol. ALLERGIES: VICODIN CAUSES NAUSEA. TERI INHIBITORS CAUSE COUGH. Medications at present include: 1. Zoloft 100 mg daily. 2. Gabapentin 300 mg at bedtime. 3. Requip 1.5 mg at bedtime. 4. Esbriet 801 mg t.i.d. 5. Xanax 0.25 mg p.r.n. t.i.d. 6. Prednisone 10 mg daily. 7. Zocor 40 mg daily. 8. Pepcid 20 mg daily. 9. Atacand/hydrochlorothiazide 32/12.5, 1 daily. 10. Aspirin 81 mg daily. SOCIAL HISTORY: Patient is and lives with his spouse. The spouse has a history of chronic ailments. She also at present has a cough and cold and congestion. FAMILY MEDICAL HISTORY: Patient's father at the age of 54, acute myocardial infarction. Mother at the age of 94. She had a history of coronary artery disease and CVA. Patient has sisters. One in her 20s. She had a history of alcohol dependency. A sister, 78 years of age, with a history of some lung ailments. A sister, 75, with restless leg syndrome. One sister, 70, in adequate health. The patient has a son, 55, and a son, 51, in adequate health. REVIEW OF SYSTEMS: NEURO: Denies any headaches, dizziness. PSYCH: Anxiety. CARDIAC: Denies chest pain, angina, palpitation. RESPIRATORY: At present complains of shortness of breath and dyspnea. GI: No nausea, vomiting, abdominal pain, diarrhea, constipation, hematochezia, melena. : No symptoms of dysuria, hematuria, urgency, frequency. Has some nocturia. EXTREMITIES: Denies pain, edema. Does have a history of restless legs. CONSTITUTIONAL: No fever. Chills at present. Had a fever a week ago. SKIN: No rashes. PHYSICAL EXAMINATION: Pleasant gentleman, at present in no distress. Vital signs reveal temperature 96.9, pulse 75, respirations 22, blood pressure 107/66, pulse ox of 94% on 4L. HEENT: Normocephalic. NECK: No JVD. Pupils reactive. Nostrils clear. Oral cavity is moist. Ears reveal no drainage. Neck reveals no JVD, carotid bruits or thyromegaly. Chest is clear to percussion with fairly adequate air flow. The patient has dry crackles at the right lower half of the lung. The patient's left side a few scattered crackles. Cardiac reveals distant heart sounds. Regular rhythm. Normal S1, S2 with no gallops. Systolic murmur 2/6 left sternal border. ABDOMEN: Soft, no palpable masses. Bowel sounds normal. No organomegaly. No bruits. Extremities reveal no edema. NEUROLOGICAL: Awake, alert, oriented with well-coordinated movements. LABORATORY ASSESSMENT: White count 15.1, hemoglobin 15. PT/PTT is normal. Sodium 136, BUN 37, creatinine 1.38. Normal liver enzymes, troponin and BNP. ASSESSMENT: 1. Acute on chronic respiratory failure. 2. Upper respiratory infection. 3. Idiopathic pulmonary fibrosis. 4. Pulmonary hypertension. 5. Chronic kidney disease, stage 3. PLAN: The patient was admitted to the hospital and started on empiric antibiotics and steroids, updrafts. Consultation with Pulmonary. Patient's condition discussed with the patient. Plan of care reviewed with the patient. Prognosis remains guarded.
[2016-08-05] MEDS: methylPREDNISolone SOD SUCCI 125 MG/2 ML VIAL IV SCH ×4 (06:29→23:42)
[2016-08-05] MEDS: FAMOTIDINE 20 MG TAB PO SCH (08:05)
[2016-08-05] MEDS: SODIUM CHLORIDE 0.9% 1,000 ML IV SCH (08:05)
[2016-08-05] MEDS: HEPARIN SODIUM,PORCINE 5,000 UNIT/ML 1 ML VIAL SQ SCH ×3 (08:05→23:42)
[2016-08-05] MEDS: ESBRIET 267 MG PO SCH ×3 (08:05→17:26)
[2016-08-05] MEDS: clonazePAM 1 MG TAB PO SCH ×2 (08:45→21:01)
[2016-08-05 08:53] LABS: CH 33.1; CHCM 34.4; HCT 40.1 % (39.0-53.0); HGB 13.4 gm/dL (13.0-17.5); MCH 32.3 pg (25.0-35.0); MCHC 33.4 g/dL (31.0-37.0); MCV 96.6 fL (80.0-100.0); Mean Platelet Volume 6.8; RBC 4.15 m/uL (4.30-5.90); RDW 13.3 % (11.5-15.5); WBC 16.1 k/uL (3.8-10.6)
[2016-08-05 09:16] LABS: Anion Gap 11 mmol/L; Blood Urea Nitrogen 43 mg/dL (9-20); Calcium 9.1 mg/dL (8.4-10.2); Carbon Dioxide 25 mmol/L (22-30); Chloride 100 mmol/L (98-107); Glucose 143 mg/dL (74-99); Non-African American GFR(MDRD) >60 (>60 ml/min/1.73 sqM); Potassium 4.9 mmol/L (3.5-5.1); Sodium 136 mmol/L (137-145)
[2016-08-05] MEDS ORDERED: RX INFO: IV CONTRAST WAS GIVEN 1 EACH MISC MISCELLANE PRN (11:40)
[2016-08-05] MEDS: ALPRAZolam 0.5 MG TAB PO PRN ×2 (11:43→17:26)
--- NOTE | 2016-08-05 13:08 | CT ---
EXAMINATION TYPE: CT chest w con DATE OF EXAM: 08/05/2016 12:44 PM COMPARISON: NONE HISTORY: Dyspnea, idiopathic pulmonary fibrosis CT DLP: 439.7 mGycm Automated exposure control for dose reduction was used. CONTRAST: CT scan of the chest is performed with IV Contrast, patient injected with 100 mL of Omnipaque 300. FINDINGS: LUNGS: There are extensive interstitial changes, subpleural honeycombing is noted, interlobular septa l pleural thickening. Groundglass opacities are also present bilaterally. The lung bases. Punctate ca lcification present along the diaphragm at the posterior costophrenic sulcus on the right. Apices jalen ewhat spared. MEDIASTINUM: The heart is enlarged. Coronary artery calcifications are present. Retrocaval pretrachea l lymph node enlargement is present. No axillary or hilar adenopathy evident. AORTA: Borderline aneurysmal at 4 cm. OTHER: Liver shows low attenuation possibly due to fatty infiltration. Cortical cyst associated with the right kidney. IMPRESSION: Lung findings are compatible with patient's history. Cardiomegaly. Coronary artery disea se. Ascending aortic aneurysm
[2016-08-05] MEDS ORDERED: FUROSEMIDE 10 MG/ML 4 ML VIAL IV STA (15:15)
--- NOTE | 2016-08-05 16:42 | P.PN ---
Subjective Principal diagnosis: Pulmonary fibrosis 81-year-old male patient diagnosed having idiopathic pulmonary fibrosis that was confirmed by a wedge biopsy of the lung that was done several years back and the patient has UIP histology. The patient sees me on a regular basis in the office regarding his pulmonary fibrosis. The patient was initially diagnosed in 2012 and subsequently was treated with Esbriet 3 tablets 3 times a day which is a therapeutic dose for idiopathic pulmonary fibrosis. 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 His diffusion capacity was down to 37% of predicted. He had a CAT scan of the chest in August 2015 that showed stable pulmonary fibrosis and limited small mediastinal lymphadenopathy measuring 2.5 cm in size in its largest dimension in the right paratracheal area and addition to that there was a 4.2 cm aortic aneurysm unchanged. The patient had subsequent follow-ups with me in the office and based on his recent evaluation from April 2016 the patient had a stable CAT scan of the chest as well as repeated and upon comparison to the previous CAT scan there was no major abnormalities noted. Note that the latest CAT scan was done in March 2016. The patient was having some chronic dry cough and for that reason he was placed on a combination of Fosamax and low-dose prednisone 10 mg by mouth daily. His baseline x-ray requirements have been 3 L/m by nasal cannula to keep a saturation above 90%. On 08/04/2016, the patient is being seen in the hospital for increased shortness of breath. He was Hospital as yesterday because of increased dyspnea. He had some slight worsening his oxygenation and currently is on 4 L of oxygen by nasal cannula. He developed some nasal and upper airway congestion. He has a dry cough. No significant sputum production. No chest pain. No change in mental status. No pleurisy. No swelling lower extremities. His chest x-ray showing chronic bilateral pulmonary fibrotic changes. The patient was admitted to the hospital and he was placed on systemic steroids in addition to DuoNeb nebulized Jesus [id number]. He was also given empiric antibiotic coverage with Levaquin 750 mg by mouth every 48 hours. No history of any DVT or pulmonary embolism. No other complaints otherwise for now. On 08/05/2016 patient is seen again in follow-up on the regular medical floor. He is awake and alert in no acute distress. He is still somewhat dyspneic on minimal exertion improved today as compared to yesterday. He does utilize 4 L/ m per nasal cannula to maintain O2 saturations in the low 90s. His computed tomography scan performed today continues to show evidence of the pulmonary fibrosis with slight progression but mainly overall stable findings. He is continued on his Esbriet. Objective - Vital Signs Vital signs: Vital Signs Temp 97.7 F 08/05/16 15:00 Pulse 72 08/05/16 15:00 Resp 20 08/05/16 15:00 BP 107/67 08/05/16 15:00 Pulse Ox 92 L 08/05/16 15:00 Intake & Output 08/04/16 08/05/16 08/05/16 18:59 06:59 18:59 Intake Total 400 750 Output Total 500 1100 Balance 400 250 -1100 Intake: Oral 400 750 Output: Urine 500 1100 Stool 0 Other: Voiding Method Toilet Toilet Toilet # Voids 2 1 - Exam Head exam was generally normal. There was no scleral icterus or corneal arcus. Mucous membranes were moist.Neck was supple and without jugular venous distension, thyromegaly, or carotid bruits. Carotids were easily palpable bilaterally. There was no adenopathy. Lung sounds are diminished and there are some coarse crackles at lung bases bilaterally.Cardiac exam revealed the PMI to be normally situated and sized. The rhythm was regular and no extrasystoles were noted during several minutes of auscultation. The first and second heart sounds were normal and physiologic splitting of the second heart sound was noted. There were no murmurs, rubs, clicks, or gallops. Abdominal exam revealed normal bowel sounds. The abdomen was soft, non-tender, and without masses, organomegaly, or appreciable enlargement of the abdominal aorta.Examination of the extremities revealed easily palpable radial, femoral and pedal pulses. There was no cyanosis, clubbing or edema. - Labs CBC & Chem 7: 08/05/16 08:14 08/05/16 08:14 Labs: Abnormal Lab Results - Last 24 Hours (Table) 08/05/16 08/05/16 Range/Units 08:14 08:14 WBC 16.1 H (3.8-10.6) k/uL RBC 4.15 L (4.30-5.90) m/uL Sodium 136 L (137-145) mmol/L BUN 43 H (9-20) mg/dL Glucose 143 H (74-99) mg/dL Assessment and Plan Plan: Assessment 1. Idiopathic pulmonary fibrosis. The patient's symptoms of worsening shortness of breath is most likely due to progression of his palmar fibrosis. Superimposed event such as pneumonia, heart failure, pulmonary embolism, or any other pulmonary complications are felt to be less likely. Nevertheless, based on his ongoing worsening shortness of breath, it's reasonable to obtain a computed tomography scan of the chest with contrast to make sure there is no other alternative decompensating factor for his IPF. 2 chronic hypoxic respiratory failure with, with slight interval worsening in his suctioning requirements is currently up to 4 L/m nasal cannula 3 chronic cough Four-vessel 6 syndrome 5 depression 6 hyperlipidemia 7 GE reflux Plan The patient was seen and evaluated by Dr. Guzmán. The computed tomography scan of his chest was reviewed and compared to his previous. He feels there is slight progression of the pulmonary fibrosis. No clear evidence of pneumonia or other underlying abnormalities. We'll continue with the IV Solu-Medrol, bronchodilators and Esbriet. We'll continue empiric antibiotics in the form of Levaquin. We've encouraged the patient to increase his activity as tolerated. We will continue to follow.
[2016-08-05] MEDS: ASPIRIN 81 MG CHEW PO SCH (21:00)
[2016-08-05] MEDS: ATORVASTATIN 20 MG TAB PO SCH (21:01)
[2016-08-05] MEDS: HYDROCHLOROTHIAZIDE 12.5 MG CAP PO SCH (21:01)
[2016-08-05] MEDS: LOSARTAN 50 MG TAB PO SCH (21:01)
[2016-08-05] MEDS: GABAPENTIN 300 MG CAP PO SCH (21:01)
[2016-08-05] MEDS: SERTRALINE 100 MG TAB PO SCH (21:04)
[2016-08-06] MEDS: methylPREDNISolone SOD SUCCI 125 MG/2 ML VIAL IV SCH ×2 (06:26→13:10)
[2016-08-06 07:49] VITALS: BP 109/59; PULSE 66; RESP 18; TEMP 96
[2016-08-06] MEDS: HEPARIN SODIUM,PORCINE 5,000 UNIT/ML 1 ML VIAL SQ SCH (07:59)
[2016-08-06] MEDS: FAMOTIDINE 20 MG TAB PO SCH (07:59)
[2016-08-06] MEDS: ESBRIET 267 MG PO SCH ×2 (07:59→13:10)
[2016-08-06] MEDS: clonazePAM 1 MG TAB PO SCH (07:59)
[2016-08-06] MEDS: SODIUM CHLORIDE 0.9% 1,000 ML IV SCH (08:03)
[2016-08-06 08:52] LABS: Anion Gap 11 mmol/L; Blood Urea Nitrogen 43 mg/dL (9-20); Calcium 8.8 mg/dL (8.4-10.2); Carbon Dioxide 29 mmol/L (22-30); Chloride 98 mmol/L (98-107); Glucose 188 mg/dL (74-99); Non-African American GFR(MDRD) >60 (>60 ml/min/1.73 sqM); Potassium 4.4 mmol/L (3.5-5.1); Sodium 138 mmol/L (137-145)
--- NOTE | 2016-08-06 09:47 | PN ---
CHIEF COMPLAINT: Re-evaluation. HISTORY OF PRESENT ILLNESS: This is an elderly gentleman, 81 years of age, who was admitted to the hospital with increasing shortness of breath. The patient does have a history of chronic pulmonary fibrosis. He has had a recent upper respiratory viral infection. REVIEW OF SYSTEMS: NEURO: Denies any headaches, dizziness. PSYCH: Anxiety. CARDIAC: No chest pain, angina, palpitation. RESPIRATORY: Shortness of breath. Some cough. No hemoptysis. GI: No nausea, vomiting, abdominal pain, diarrhea. : No symptoms of dysuria, hematuria. EXTREMITIES: No pain. Does have restless legs. CONSTITUTIONAL: No fever or chills. PHYSICAL EXAMINATION: Pleasant gentleman in no distress. Vital signs reveal temperature 97.6, pulse 72, respirations 20, blood pressure 98/51, pulse ox 92% on 4 liters. HEENT: Normocephalic. NECK: No JVD. CHEST: Clear to auscultation with generalized decreased air flow. Some dry crackles bilaterally, more so on the left mid zone. CARDIAC: Distant heart sounds. S1, S2 with no gallops. Systolic murmur 2/6 left sternal border. ABDOMEN: Soft, no palpable masses. Bowel sounds normal. No organomegaly. No abdominal bruits. EXTREMITIES: Reveal no edema. NEUROLOGICAL: Awake, alert, oriented with well coordinated movements. LABORATORY ASSESSMENT: White count of 16.1, hemoglobin 13.4, platelets 215, sodium 136, BUN 43, creatinine 1.16, GFR greater than 60, glucose 143. CT scan of the chest reveals pulmonary fibrosis. The patient also has some coronary artery calcifications and ascending aortic aneurysm. ASSESSMENT: 1. Acute on chronic respiratory failure. 2. Pulmonary fibrosis. 3. Upper respiratory infection. 4. History of hypertension. 5. Ascending aortic aneurysm. PLAN: The patient is stable. Continue present medical regimen. The patient's condition discussed with the patient. Prognosis guarded. For his anxiety we will switch patient back to Xanax at 0.5 mg p.r.n. q.6. Will start the patient Klonopin 1 mg b.i.d. to help with anxiety and restless legs. Patient's condition discussed with the patient. Prognosis guarded. Condition discussed with Dr. Guzmán.
[2016-08-06] MEDS ORDERED: LEVOFLOXACIN 750 MG TAB PO SCH (11:13)
--- NOTE | 2016-08-06 13:14 | P.PN ---
Subjective Principal diagnosis: Pulmonary fibrosis 81-year-old male patient diagnosed having idiopathic pulmonary fibrosis that was confirmed by a wedge biopsy of the lung that was done several years back and the patient has UIP histology. The patient sees me on a regular basis in the office regarding his pulmonary fibrosis. The patient was initially diagnosed in 2012 and subsequently was treated with Esbriet 3 tablets 3 times a day which is a therapeutic dose for idiopathic pulmonary fibrosis. 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 His diffusion capacity was down to 37% of predicted. He had a CAT scan of the chest in August 2015 that showed stable pulmonary fibrosis and limited small mediastinal lymphadenopathy measuring 2.5 cm in size in its largest dimension in the right paratracheal area and addition to that there was a 4.2 cm aortic aneurysm unchanged. The patient had subsequent follow-ups with me in the office and based on his recent evaluation from April 2016 the patient had a stable CAT scan of the chest as well as repeated and upon comparison to the previous CAT scan there was no major abnormalities noted. Note that the latest CAT scan was done in March 2016. The patient was having some chronic dry cough and for that reason he was placed on a combination of Fosamax and low-dose prednisone 10 mg by mouth daily. His baseline x-ray requirements have been 3 L/m by nasal cannula to keep a saturation above 90%. On 08/04/2016, the patient is being seen in the hospital for increased shortness of breath. He was Hospital as yesterday because of increased dyspnea. He had some slight worsening his oxygenation and currently is on 4 L of oxygen by nasal cannula. He developed some nasal and upper airway congestion. He has a dry cough. No significant sputum production. No chest pain. No change in mental status. No pleurisy. No swelling lower extremities. His chest x-ray showing chronic bilateral pulmonary fibrotic changes. The patient was admitted to the hospital and he was placed on systemic steroids in addition to DuoNeb nebulized Jesus [id number]. He was also given empiric antibiotic coverage with Levaquin 750 mg by mouth every 48 hours. No history of any DVT or pulmonary embolism. No other complaints otherwise for now. On 08/05/2016 patient is seen again in follow-up on the regular medical floor. He is awake and alert in no acute distress. He is still somewhat dyspneic on minimal exertion improved today as compared to yesterday. He does utilize 4 L/ m per nasal cannula to maintain O2 saturations in the low 90s. His computed tomography scan performed today continues to show evidence of the pulmonary fibrosis with slight progression but mainly overall stable findings. He is continued on his Esbriet. He is seen again today 08/06/2016 in follow-up. He is awake and alert in no acute distress. He is improved today as compared to yesterday. He denies any worsening shortness of breath. He continues with a dry nonproductive cough. No chills or night sweats. He is anxious to go home. Objective - Vital Signs Vital signs: Vital Signs Temp 96.0 F L 08/06/16 07:00 Pulse 66 08/06/16 07:00 Resp 18 08/06/16 07:00 BP 109/59 08/06/16 07:00 Pulse Ox 95 08/06/16 07:00 Intake & Output 08/05/16 08/06/16 08/06/16 18:59 06:59 18:59 Output Total 1900 150 Balance -1900 -150 Output: Urine 1900 150 Stool 0 Other: Voiding Method Toilet Urinal - Exam Head exam was generally normal. There was no scleral icterus or corneal arcus. Mucous membranes were moist.Neck was supple and without jugular venous distension, thyromegaly, or carotid bruits. Carotids were easily palpable bilaterally. There was no adenopathy. Lung sounds are diminished and there are some coarse crackles at lung bases bilaterally.Cardiac exam revealed the PMI to be normally situated and sized. The rhythm was regular and no extrasystoles were noted during several minutes of auscultation. The first and second heart sounds were normal and physiologic splitting of the second heart sound was noted. There were no murmurs, rubs, clicks, or gallops. Abdominal exam revealed normal bowel sounds. The abdomen was soft, non-tender, and without masses, organomegaly, or appreciable enlargement of the abdominal aorta.Examination of the extremities revealed easily palpable radial, femoral and pedal pulses. There was no cyanosis, clubbing or edema. - Labs CBC & Chem 7: 08/05/16 08:14 03/18/17 08:03 Labs: Abnormal Lab Results - Last 24 Hours (Table) 08/06/16 Range/Units 08:03 BUN 43 H (9-20) mg/dL Glucose 188 H (74-99) mg/dL Assessment and Plan Plan: Assessment 1. Idiopathic pulmonary fibrosis. The patient's symptoms of worsening shortness of breath is most likely due to progression of his palmar fibrosis. Superimposed event such as pneumonia, heart failure, pulmonary embolism, or any other pulmonary complications are felt to be less likely. Nevertheless, based on his ongoing worsening shortness of breath, it's reasonable to obtain a computed tomography scan of the chest with contrast to make sure there is no other alternative decompensating factor for his IPF. 2 chronic hypoxic respiratory failure with, with slight interval worsening in his suctioning requirements is currently up to 4 L/m nasal cannula 3 chronic cough Four-vessel 6 syndrome 5 depression 6 hyperlipidemia 7 GE reflux Plan: The patient was seen and evaluated by Dr. Guzmán. He is cleared for discharge from the pulmonary standpoint. We'll continue with the prednisone taper and complete his course of antibiotics. We'll resume his Esbriet schedule as at home as well. He will keep his office visit with Dr. Guzmán as scheduled. He is however encouraged to call sooner with any recurrence of symptoms or other questions or concerns.
--- NOTE | 2016-08-14 15:06 | P.DS ---
Providers Date of admission: 08/03/16 18:32 Attending physician: Rolf Leblanc Primary care physician: Rolf Leblanc Hospital Course: Hospital course: History of present illness 81-year-old gentleman with known pulmonary fibrosis and progressive. Presented to the emergency room with complaints of increasing shortness of breath. The patient did recently have a mild upper respiratory infection symptoms. The patient had been followed by Dr. Guzmán on the outpatient. His symptoms are progressive and at times patient had panic episodes making it worse. The patient's spouse hesitant recent respiratory infection as well. Patient is admitted to the hospital treated with steroids and antibiotics oxygen. HEENT patient did progressively improve. Patient was also seen by Dr. Guzmán and a repeat CAT scan done which did show that to the fibrosis is extensive it seemed to be stable. Patient general condition did improve with hydration and steroids and antibiotic empirically. He is discharged home to follow up in the outpatient. Patient does use oxygen 24 7. Diagnosis to include 1. Acute on chronic respiratory failure 2. Pulmonary fibrosis 3. Upper respiratory infection 4. Restless leg syndrome 5. Anxiety 6. Hypertension Plan - Discharge Summary New Discharge Prescriptions: ALPRAZolam [Xanax] 0.5 mg PO TID PRN #90 tab PRN Reason: Anxiety Levofloxacin [Levaquin] 750 mg PO Q24H #7 tab clonazePAM [KlonoPIN] 1 mg PO BID #60 tab predniSONE 10 mg PO DIRECTED #32 tab Discharge Medication List Aspirin EC [Ecotrin Low Dose] 81 mg PO DAILY 07/26/16 [History] Candesartan/Hydrochlorothiazid [Candesartan-Hctz 32-12.5 mg Tb] 1 tab PO DAILY 07/26/16 [History] Famotidine [Pepcid] 20 mg PO DAILY 07/26/16 [History] Gabapentin [Neurontin] 300 mg PO HS 07/26/16 [History] Pirfenidone [Esbriet] 801 mg PO TID 07/26/16 [History] Sertraline [Zoloft] 100 mg PO HS 07/26/16 [History] Simvastatin [Zocor] 40 mg PO HS 07/26/16 [History] rOPINIRole HCL [Requip] 1.5 mg PO HS 07/26/16 [History] ALPRAZolam [Xanax] 0.5 mg PO TID PRN #90 tab 08/06/16 [Rx] Levofloxacin [Levaquin] 750 mg PO Q24H #7 tab 08/06/16 [Rx] clonazePAM [KlonoPIN] 1 mg PO BID #60 tab 08/06/16 [Rx] predniSONE 10 mg PO DIRECTED #32 tab 08/06/16 [Rx] Follow up Appointment(s)/Referral(s): Rolf Leblanc MD [Primary Care Provider] - 1-2 days Activity/Diet/Wound Care/Special Instructions: PLEASE MAKE APPOINTMENT WITH DR. LEBLANC ON MONDAY MORNING. Discharge Disposition: HOME SELF-CARE
== END 2016-08-06 13:24 | disposition home or self-care (01) | DRG 196 ==
LOC: EC 15:08 → 4MS4W 18:32
PROVIDERS: ADMIT Internal Medicine; ATTEND Internal Medicine
DX: J84.112 Idiopathic pulmonary fibrosis (principal); J96.21 Acute and chronic respiratory failure with hypoxia; I27.2 Other secondary pulmonary hypertension; E78.5 Hyperlipidemia, unspecified; F32.9 Major depressive disorder, single episode, unspecified; G25.81 Restless legs syndrome; I12.9 Hypertensive chronic kidney disease with stage 1 through stage 4 chronic kidney disease, or unspecified chronic kidney disease; I71.2 Thoracic aortic aneurysm, without rupture; K21.9 Gastro-esophageal reflux disease without esophagitis; N18.3 Chronic kidney disease, stage 3 (moderate); Z79.82 Long term (current) use of aspirin; Z79.899 Other long term (current) drug therapy; Z82.49 Family history of ischemic heart disease and other diseases of the circulatory system
CPT/HCPCS: 36415; 71020; 71260; 80048; 80053; 82550; 82553; 83880; 84484; 85025; 85027; 85610; 85730; 87040; 87502; 93005; 94644; 96365; 96366; 96375; 96376; 99284